=== PATIENT | female | born 1970 | race African-American/Black ===

== ENCOUNTER 2018-08-07 09:55 | Emergency (ER) | payer MEDICAID, OTHER ==
[~2018-08-07] VITALS: Ht 177.8 cm; Wt 87.1 kg
[~2018-08-07 09:55] MED LIST: IBUPROFEN600 MG ORAL; NITROFURANTOIN100 M2 ORAL; NORCO1 E1 ORAL; TRAMADOL HCL50 MG ORAL
[2018-08-07 10:16] VITALS: BP 146/81
[2018-08-07] MEDS ORDERED: Ketorolac 30mg Inj IM ONE (10:45)
[2018-08-07] MEDS ORDERED: Norco 5mg/325mg tab PO ONE (10:45)
[2018-08-07] MEDS ORDERED: IBUPROFEN600 MG ORAL (11:27)
[2018-08-07] MEDS ORDERED: NORCO 5-325 TA1 EACH ORAL (11:27)
[2018-08-07 11:33] VITALS: BP 146/81
--- NOTE | 2018-08-07 12:35 | Diagnostic Imaging Report ---
EXAM: XR Right Shoulder Complete, 2 or More Views CLINICAL HISTORY: PAIN TECHNIQUE: Two or more views of the right shoulder. COMPARISON: No relevant prior studies available. FINDINGS: Bones/joints: Normal alignment is seen at the acromioclavicular and glenohumeral joints. No visible displaced fracture or dislocation. No osseous erosions. Coracoclavicular and subacromial spaces appear within normal limits. The clavicle and scapula appear intact. Soft tissues: Curvilinear soft tissue calcification superolateral to the humeral head. IMPRESSION: Findings suggestive of calcific tendinitis of the rotator cuff.
--- NOTE | 2018-08-07 12:56 | Emergency Room Report ---
History of Present Illness General Chief Complaint: Pain Source: Patient Present Illness HPI 48-year-old female presents ED for evaluation. Patient presenting with right shoulder pain 2 days. Woke up with the pain. Denies any recent fall or injury. Pain is throbbing, 10 out of 10, nonradiating. Unable to abduct her shoulder. No other aggravating relieving factors. Denies any other associated symptoms Allergies: Coded Allergies: No Known Allergies (Unverified , 11/16/17) Patient History Past Medical History: none Past Surgical History: none Pertinent Family History: none Social History: Denies: smoking, alcohol use, drug use Last Menstrual Period: 07/03/18 Now: No Immunizations: UTD Reviewed Nursing Documentation: PMH: Agreed; PSxH: Agreed Nursing Documentation-PMH Past Medical History: No History, Except For Review of Systems All Other Systems: negative except mentioned in HPI Physical Exam Vital Signs Date Time Temp Pulse Resp B/P (MAP) Pulse Ox O2 Delivery O2 Flow Rate FiO2 08/07/18 10:02 98.8 84 18 146/81 97 Room Air 98.8 Sp02 EP Interpretation: reviewed, normal General Appearance: no apparent distress, alert, GCS 15, non-toxic Head: normocephalic Eyes: bilateral eye normal inspection, bilateral eye PERRL ENT: normal ENT inspection Neck: normal inspection Respiratory: normal inspection Cardiovascular #1: normal inspection Gastrointestinal: normal inspection Rectal: deferred Genitourinary: no CVA tenderness Musculoskeletal: decreased range of motion - R shoulder, tender Neurologic: alert, oriented x3, responsive, motor strength/tone normal, sensory intact, speech normal Psychiatric: normal inspection Skin: normal inspection Lymphatic: normal inspection Procedures Splinting Splinting : Consent: Verbal Pre-Made Type: shoulder sling Pre-Proc Neuro Vasc Exam: normal Post-Proc Neuro Vasc Exam: normal Patient Tolerated: Well Complications: None Medical Decision Making Diagnostic Impression: Primary Impression: Shoulder pain Qualified Codes: M25.511 - Pain in right shoulder ER Course Hospital Course 48-year-old F presents to ED complaining of R shoulder pain Differential diagnoses include: Fracture, dislocation, sprain, contusion Clinical course Patient placed on stretcher. After initial history and physical, I ordered pain medications and Xrays of R shoulder Xrays read shows no acute fracture/dislocation. evidence suggestive of calific tendinitis Please in shoulder sling. discussed findings with patient. Safe for discharge with close outpatient follow-up. I will provide orthopedic referral. Diagnosis - shoulder pain Stable and discharged to home with prescription for Motrin, [place]. apply ice, keep elevated. weight bear as tolerated. Followup with PMD/ortho. Return to ED if symptoms recur or worsen Other X-Ray Diagnostic Results Other X-Ray Diagnostic Results : X-Ray ordered: R shoulder # of Views/Limited Vs Complete: 3 View Indication: Pain EP Interpretation: Yes Interpretation: no dislocation, no soft tissue swelling, no fractures, other - calcifications Impression: No acute disease Electronically Signed by: Electronically signed by Thad Bañuelos MD Last Vital Signs Date Time Temp Pulse Resp B/P (MAP) Pulse Ox O2 Delivery O2 Flow Rate FiO2 08/07/18 11:33 98.8 84 18 146/81 97 Room Air 98.8 Status: improved Disposition: HOME, SELF-CARE Condition: Stable Scripts Hydrocodone Bit/Acetaminophen 5-325* (NORCO 5-325*) 1 Each Tablet 1 TAB ORAL Q6H PRN for For Pain, #10 TAB 0 Refills Prov: Thad Bañuelos MD 08/07/18 Ibuprofen* (MOTRIN*) 600 Mg Tablet 600 MG ORAL Q8H PRN for For Pain, #30 TAB 0 Refills Prov: Thad Bañuelos MD 08/07/18 Referrals: [facility]ERR[facility] (PCP) Patient Instructions: Shoulder Pain, [id number] Thad Bañuelos MD Aug 07, 2018 12:56
== END 2018-08-07 11:30 | disposition home or self-care (01) ==
LOC: EMR 10:10
DX: M25.511 Pain in right shoulder (principal)
CPT/HCPCS: 29105; 73030; 96372; 99283; J1885